=== PATIENT | female | born 1975 | race Caucasian/White ===

== ENCOUNTER 2021-09-15 06:26 | Emergency (ER) | payer OTHER, MEDICARE ==
[2021-09-15 07:22] LABS: BASOPHIL 0.5 % (0-2); EOSINOPHIL 1.1 % (0-5); HGB 14.2 g/dl (12.5-16.0); LYMPHOCYTE 30.6 % (15-48); MCH 29.8 pg (25.0-31.0); MCV 90.1 fL (78.0-100.0); MONOCYTE 9.1 % (0-12); MPV 10.3 fL (6.0-9.5); NEUTROPHIL 58.3 % (41-80); NRBC 0; PLT 308 K/uL (150-400); RBC 4.77 M/uL (4.20-5.40); RDW 12.9 % (11.5-14.0); WBC 7.9 K/uL (4.0-10.5)
[2021-09-15 07:49] LABS: ALBUMIN 3.8 g/dL (3.4-5.0); BILIRUBIN - TOTAL 0.3 mg/dL (0.2-1.0); BUN/CREAT RATIO (CALC) 19.2 RATIO; CREATININE 0.73 mg/dL (0.51-0.95); GLOBULIN (CALCULATION) 3.6 g/dL; POTASSIUM 3.5 mmol/L (3.5-5.1); TOTAL PROTEIN 7.4 g/dL (6.4-8.2)
[2021-09-15] MEDS ORDERED: ANTIVERT25 MG PO (08:17)
== END 2021-09-15 09:08 | disposition home or self-care (01) ==
LOC: FER 06:26
PROVIDERS: Internal Medicine
DX: I11.0 Hypertensive heart disease with heart failure (principal); I50.9 Heart failure, unspecified; R42 Dizziness and giddiness; F17.210 Nicotine dependence, cigarettes, uncomplicated; Z88.6 Allergy status to analgesic agent; Z88.2 Allergy status to sulfonamides
CPT/HCPCS: 36415; 71045; 80053; 83690; 83880; 84145; 84443; 84484; 85025; 93005

== ENCOUNTER 2021-12-16 18:41 | Emergency (ER) | payer OTHER, MEDICARE ==
[~2021-12-16 18:41] MED LIST: ANTIVERT25 MG PO
[2021-12-17 00:33] LABS: BASOPHIL 0.7 % (0-2); EOSINOPHIL 2.6 % (0-5); HCT 36.9 % (37.0-47.0); HGB 12.2 g/dl (12.5-16.0); LYMPHOCYTE 42.5 % (15-48); MCH 29.8 pg (25.0-31.0); MCHC 33.1 g/dL (32.0-36.0); MCV 90.2 fL (78.0-100.0); MONOCYTE 9.3 % (0-12); MPV 10.2 fL (6.0-9.5); NEUTROPHIL 44.5 % (41-80); NRBC 0; PLT 262 K/uL (150-400); RBC 4.09 M/uL (4.20-5.40); RDW 13.4 % (11.5-14.0)
[2021-12-17 00:55] LABS: BUN/CREAT RATIO (CALC) 20.9 RATIO; CREATININE 0.67 mg/dL (0.51-0.95)
[2021-12-17 02:00] LABS: CORONAVIRUS 2019 SARS-COV-2 NEGATIVE (NEGATIVE); INFLUENZA A NAA NEGATIVE (NEGATIVE)
[2021-12-17] MEDS ORDERED: ONDANSETRON ODT4 MG PO (02:57)
[2021-12-17] MEDS ORDERED: K-TAB ER20 MEQ PO (02:57)
[2021-12-17] MEDS ORDERED: LASIX40 MG PO (02:57)
== END 2021-12-17 03:34 | disposition home or self-care (01) ==
LOC: FER 18:41
PROVIDERS: Internal Medicine
DX: I11.0 Hypertensive heart disease with heart failure (principal); I50.9 Heart failure, unspecified; B34.9 Viral infection, unspecified; E87.6 Hypokalemia; I25.2 Old myocardial infarction; Z20.822 Contact with and (suspected) exposure to COVID-19; Z95.0 Presence of cardiac pacemaker
CPT/HCPCS: 36415; 71045; 80048; 83880; 84145; 84484; 85025; 93005; U0002

== ENCOUNTER 2022-03-04 18:56 | Emergency (ER) | payer OTHER, MEDICARE ==
[~2022-03-04 18:56] MED LIST changes: +K-TAB ER20 MEQ PO; +LASIX40 MG PO; +ONDANSETRON ODT4 MG PO
== END 2022-03-04 21:05 | disposition home or self-care (01) ==
LOC: FER 18:56
DX: S02.2XXA Fracture of nasal bones, initial encounter for closed fracture (principal); S09.90XA Unspecified injury of head, initial encounter; S00.81XA Abrasion of other part of head, initial encounter; T14.8XXA Other injury of unspecified body region, initial encounter; F17.200 Nicotine dependence, unspecified, uncomplicated; I11.0 Hypertensive heart disease with heart failure; I50.9 Heart failure, unspecified; Z79.82 Long term (current) use of aspirin; Z79.899 Other long term (current) drug therapy; Y04.0XXA Assault by unarmed brawl or fight, initial encounter; Y92.59 Other trade areas as the place of occurrence of the external cause
CPT/HCPCS: 70450; 70486

== ENCOUNTER 2022-06-03 09:30 | Emergency (ER) | payer OTHER, MEDICARE ==
[2022-06-03] MEDS ORDERED: AMOX TR-K CLV1 EAC4 PO (09:50)
== END 2022-06-03 10:30 | disposition home or self-care (01) ==
LOC: FER 09:30
DX: S51.851A Open bite of right forearm, initial encounter (principal); F17.200 Nicotine dependence, unspecified, uncomplicated; Z23 Encounter for immunization; Y92.009 Unspecified place in unspecified non-institutional (private) residence as the place of occurrence of the external cause; W54.0XXA Bitten by dog, initial encounter
CPT/HCPCS: 73090; 90471; 90715